=== PATIENT | male | born 1970 | race Caucasian/White ===

== ENCOUNTER 2024-12-25 15:51 | Inpatient (IN) | payer OTHER, SELFPAY ==
[2024-12-24] VITALS (12 sets, daily range): BP systolic 165–212; BP diastolic 95–132; BMI 32.5
--- NOTE | 2024-12-24 16:10 | EDRN ---
This RN spoke w/ crisis, informed crisis that pt. has requests for help w/ his depression, pt. denies SI, denies HI, but does request crisis help.
--- NOTE | 2024-12-24 16:28 | ED.GENMED ---
Addendum entered and electronically signed by Tano Quinonez MD 12/25/24 15:11:
Patient, while waiting for potential transfer to inpatient psychiatric facility, remains persistently hypotensive, despite multiple medications administered along with prolonged course of observation. As such, patient unsafe to be discharged or
transferred to inpatient psychiatric facility at this time. Patient will need better control of his blood pressure prior to initiating transfer. As such, patient will be admitted to hospitalist service for further evaluation and treatment.
Original Note:
History of Present Illness
General
Chief Complaint: Blood Pressure Problem
Time Seen by Provider: 12/24/24 16:23
History of Present Illness
History of Present Illness:
TIME OF INITIAL ENCOUNTER: 4:30 PM
HPI: As I walked in the room, the patient tells me that he cannot cope. He states he has severe anxiety and anger. He had been on BuSpar. He does not necessarily describe any suicidal ideation but also describes a sensation of feeling hopeless.
Of note he was found to be hypertensive upon arrival.
EXAM:
GENERAL: Well appearing in no distress
HEENT: Moist oral mucosa
CARDIOVASCULAR: No murmurs, normal heart rate, regular rhythm, No chest wall tenderness
PULMONARY: No respiratory distress, breath sounds are clear and equal
ABDOMEN: Soft with no peritoneal signs, no tenderness
NEUROLOGIC: Excellent strength all extremities, no coordination deficits
PSYCHIATRIC: Appears somewhat upset and anxious
EXTREMITIES: Nontender, no edema, moves all extremities equally
SKIN: No rash, no lesions
NUMBER AND COMPLEXITY OF PROBLEMS ADDRESSED AT THE ENCOUNTER
� Chronic conditions affecting care: Anxiety/depression, diabetes diet controlled, 'brain bleed', smoker
� Acute Exacerbation and/or Progression of Chronic Illness: This is an acute problem
� Differential Diagnosis includes: Suicidal ideation, depression, anxiety, hypertensive urgency,
AMOUNT AND/OR COMPLEXITY OF DATA TO BE REVIEWED AND ANALYZED
� I performed an independent evaluation of and my interpretation is:
EKG: Sinus 95, leftward axis deviation, ST abnormality may be related to LVH versus lateral ischemia
CT: CT shows old encephalomalacia left frontal, no acute abnormality
X-rays:
Laboratory Studies: White count 12.1, hemoglobin normal, troponin negative, chemistries relatively unremarkable, alcohol undetected
Other:
� Review of other/old records: No old records available for review in [facility]
� Clinical information was obtained by an independent historian: I spoke to father at bedside who feels that the patient must be transferred to a psychiatric facility for further psychiatric evaluation and management.
� Prescriptions/Medications Considered but not given:
� Further testing considered but not performed:
RISK OF COMPLICATIONS AND/OR MORBIDITY OR MORTALITY OF PATIENT MANAGEMENT
� Social determinants of health affecting care: Patient is currently homeless.
� Discussion with other providers: Discussed with crisis as consult was placed by triage as patient reported feeling depressed but he denies being suicidal.
� Escalation of care including admission/observation vs risk of discharge considered: Patient presents due to wanting help from a mental health standpoint.Patient was seen again by crisis at around 6:15 PM. Crisis recommending
CT imaging brain given the patient's history. Although patient's blood pressures have been elevated, he has no specific complaints related to high blood pressure. Suspect that some of the blood pressure is related to anxiety related issues and
just being upset. We did give antihypertensives here with some improvement of blood pressure. Was not very aggressive with lowering the blood pressure as patient is asymptomatic.
ANY OTHER UPDATES:
Crisis is bed searching for the patient. Unfortunately, given the patient's history of intracranial hemorrhage (of note which was traumatic), and persistently elevated high blood pressures despite oral and IV medications, it is currently difficult
to find a facility to willingly take him. Crisis states that they will bed search again tomorrow. I have ordered a morning dose of losartan 100 mg for him tomorrow. I have also placed him back on BuSpar.
Phy Exam
Physical Exam
Physical Exam:
See HPI
Course
Orders/Labs/Results
Orders:
Orders
12/24/24 15:45
EKG [Electrocardiogram (*1)] Urgent
Reason for Study: Hypertension, Benign
Crisis Consult Urgent
Reason for Consult: depression
EKG- Treatment ONCE
12/24/24 16:59
Lorazepam [Ativan] 1 mg IV NOW STA
12/24/24 17:47
Alcohol Urgent
Complete Blood Count/With Diff Urgent
Comprehensive Metabolic Panel Urgent
Magnesium Urgent
NT-proBNP Urgent
Troponin I Urgent
12/24/24 17:55
Losartan [Cozaar] 50 mg PO NOW STA
12/24/24 18:11
Add On- LAB Urgent
Tests Added?: alcohol
12/24/24 18:23
CT Head W/o Iv Contrast Urgent
Comment:
Reason For Exam: SANCHEZ high BP prior bleed
12/24/24 19:41
Labetalol HCl [Trandate] 10 mg IV NOW STA
12/24/24 20:54
Losartan [Cozaar] 50 mg PO NOW STA
12/24/24 21:25
Urine Drug Abuse Screen Urgent
Date Specimen was Collected: 12/24/24
Time Specimen was Collected: 18:22
12/24/24 22:01
Labetalol HCl [Trandate] 10 mg IV NOW STA
12/25/24 08:00
Losartan [Cozaar] 100 mg PO DAILY
Abnormal Lab Results
12/24/24
17:47
WBC 12.1 H 10^3/uL
(4.8-10.8)
Abs Immat Gran (auto) 0.1 H 10^3/uL
(0-0.05)
Absolute Neuts (auto) 7.7 H 10^3/uL
(1.4-6.5)
Absolute Monos (auto) 0.8 H 10^3/uL
(0.1-0.6)
Chloride 111 H mmol/L
(98-107)
BUN 21 H mg/dl
(9-20)
Glucose 113 H mg/dl
(70-99)
Calcium 10.4 H mg/dl
(8.4-10.2)
Magnesium 2.4 H mg/dl
(1.6-2.3)
ALT 74 H U/L
(0-50)
12/24/24 17:47
12/24/24 17:47
Vital Signs
Initial and Last Documented VS:
Initial Vital Signs
Temp Pulse Resp BP Pulse Ox
36.9 C 98 18 212/120 97
12/24/24 15:32 12/24/24 15:32 12/24/24 15:32 12/24/24 15:32 12/24/24 15:32
Last Documented Vital Signs
Temp Pulse Resp BP Pulse Ox
36.9 C 66 14 183/109 96
12/24/24 15:32 12/24/24 22:15 12/24/24 22:15 12/24/24 22:07 12/24/24 20:00
*Critical Care Note
Total Time (30-74mins, 75-104mins- exclusive of procedures): Not Applicable
ED Attending Note
-
Portions of this chart may have been created with voice recognition software.� Occasional wrong word or��sound alike� substitutions may have occurred due to the inherent limitations of voice recognition software.
Discharge Plan
Departure
Patient Disposition: Psych Facility
Date of Disposition: 12/24/24
Time of Disposition: 19:42
Patient with high blood pressure during this ER visit?: Yes
Discharge Problem:
Severe depression
Referrals:
NONE,* [Family Provider, Internal Medicine]
Interventions
Interventions:
*Risk Screen - Suicide Last Done: 12/24/24 15:32
*General Assessment Last Done: 12/24/24 15:32
*Neglect/Abuse Screening Last Done: 12/24/24 15:32
*ED COVID-19 Vaccine History Last Done: 12/24/24 15:32
ED- Cardiac Assessment Last Done: 12/24/24 18:08
ED- Neurological Assessment Last Done: 12/24/24 18:08
ED-Psychological Assessment Last Done: 12/24/24 18:08
ED- Pulmonary Assessment Last Done: 12/24/24 18:08
Discharge Date and Time
Print Language: AMHARIC
[2024-12-24] MEDS: ATIVAN 1 MG IV (17:48)
[2024-12-24 17:58] LABS: % Basophils 0.7 % (0-2); % Eosinophils 1.8 % (0-6); % Immature Granulocytes 0.4 % (0-0.5); % Lymphocytes 26.9 % (20.5-51.1); % Monocytes 6.4 % (1.7-9.3); % Neutrophils 63.8 % (42.2-75.2); Absolute Basophils 0.1 10^3/uL (0-0.2); Absolute Eosinophils 0.2 10^3/uL (0-0.7); Absolute Immature Granulocytes 0.1 10^3/uL (0-0.05); Absolute Lymphocytes 3.2 10^3/uL (1.2-3.4); Absolute Monocytes 0.8 10^3/uL (0.1-0.6); Absolute Neutrophils 7.7 10^3/uL (1.4-6.5); Hematocrit 47.3 % (39.0-52.0); Hemoglobin 16.6 g/dL (13.0-18.0); Mean Corp Hgb Conc. 35.1 g/dL (33.0-37.0); Mean Corpuscular Hgb 29.9 pg (27.0-31.0); Mean Corpuscular Volume 85.1 fL (80.0-94.0); Nucleated Red Blood Cells % 0 % (-); Platelet Count 219 10^3/uL (130-400); Red Blood Cell Count 5.56 10^6/uL (4.70-6.10); White Blood Cell Count 12.1 10^3/uL (4.8-10.8)
[2024-12-24] MEDS: COZAAR 50 MG PO ×2 (18:04→21:16)
[2024-12-24 18:30] LABS: NT-proBNP 146 pg/ml; Troponin I < 0.012 ng/ml
[2024-12-24 18:31] LABS: ALT (SGPT) 74 U/L (0-50); AST (SGOT) 39 U/L (17-59); Albumin 4.9 g/dl (3.5-5.0); Alkaline Phosphatase 76 U/L (38-126); Blood Urea Nitrogen 21 mg/dl (9-20); Calcium 10.4 mg/dl (8.4-10.2); Carbon Dioxide 24 mmol/L (22-30); Chloride 111 mmol/L (98-107); Estimated Creatinine Clearance 100 ml/min; Glucose 113 mg/dl (70-99); Magnesium 2.4 mg/dl (1.6-2.3); Potassium 4.1 mmol/L (3.5-5.1); Sodium 144 mmol/L (135-145); Total Bilirubin 0.5 mg/dl (0.2-1.3); Total Protein 7.6 g/dl (6.3-8.2); eGFR > 60.00
[2024-12-24 18:41] LABS: Alcohol None Detected
[2024-12-24] MEDS: TRANDATE 10 MG IV ×2 (20:06→22:07)
--- NOTE | 2024-12-24 20:14 | EDRN ---
Per ED attending, pt. does not require 1:1 sitter.
[2024-12-24] MEDS: BUSPAR 7.5 MG PO (23:50)
[2024-12-25] VITALS (16 sets, daily range): BP systolic 160–225; BP diastolic 81–138; BMI 31.4
[2024-12-25] MEDS: COZAAR 100 MG PO (09:23)
[2024-12-25] MEDS: BUSPAR 7.5 MG PO ×2 (09:23→20:02)
[2024-12-25 09:50] LABS: Marijuana Positive (Negative); Phencyclidine Positive (Negative)
[2024-12-25 09:51] LABS: Amphetamines Negative (Negative); Barbiturates Negative (Negative); Benzodiazepines Positive (Negative); Buprenorphine Negative (Negative); Cocaine Negative (Negative); Methadone Negative (Negative); Methamphetamines Negative (Negative); Opiates Negative (Negative); Tricyclic Antidepressants Negative (Negative)
[2024-12-25 10:15] LABS: Fentanyl, Urine Negative (Negative)
[2024-12-25] MEDS: NORVASC 10 MG PO ×2 (11:17→16:57)
[2024-12-25] MEDS: TRANDATE 10 MG IV (11:18)
--- NOTE | 2024-12-25 15:11 | HPS.HSE ---
Family Physician
-
Family Physician: * NONE
Chief Complaint
-
elevated HTN
History of Present Illness
54-year-old with past medical history of hypertension noncompliance on medications presented to ER yesterday due to anxiety and anger. His father brought him to the hospital. Patient remained hypertensive for which he received labetalol, losartan
and Norvasc with no relief in his blood pressure. Upon my assessment, patient seemed very angry at his family and food. Patient denied any suicidal ideation. Denied headache or dizziness. Denied fever, chills, chest pain, short of breath.
Patient denied abdominal pain, nausea, vomiting or diarrhea. Patient denies dysuria hematuria.
Admitting for further management
Medical History
Past Medical History
Past Medical History: Reports Other
Additional Past Medical History:
Hypertension
Past Surgical History: Reports Other
Additional Past Surgical History:
Hernia surgery
Social History
Tobacco: Smoker
Alcohol: Occasional
Drug: Marijuana
Living: With Family
Family History
Family History: Not pertinent
Allergies / Home Medications
Allergies reflects when Allergies were last updated in [employer].
Home Medications with original date entered in [employer]
Allergy/Medication List:
Allergies
Allergy/AdvReac Type Severity Reaction Status Date / Time
Penicillins Allergy Unknown Verified 12/24/24 23:01
Home Medications
No Meds [No Current Medications] 12/25/24
Review of Systems
-
Constitutional: Reports No Symptoms
EENT: Reports No Symptoms
Respiratory: Reports No Symptoms
Cardiac: Reports No Symptoms
Abdomen/GI: Reports No Symptoms
: Reports No Symptoms
Musculoskeletal: Reports No Symptoms
Skin: Reports No Symptoms
Neurological: Reports No Symptoms
Endocrine: Reports No Symptoms
Hematologic/Lymphatic: Reports No Symptoms
Psych: Reports No Symptoms
Physical Exam
Vital Signs
Vital Signs
Temp Pulse Resp BP Pulse Ox
97.6 F 74 15 178/104 98
12/25/24 09:21 12/25/24 14:45 12/25/24 14:45 12/25/24 14:44 12/25/24 01:10
Physical Exam
General: Well Developed, Well Nourished and No Apparent Distress
HEENT: NormoCephalic, Moist mucous membranes and Atraumatic
Respiratory: Clear
Cardiac: S1/S2 and Regular Rhythm; No Murmur or Rub
GI: Soft, Non Tender, Non Distended and Normal Bowel Sounds; No Organomegaly
Rectal: Deferred by Provider
Musculoskeletal: No Clubbing, No Cyanosis and No Edema
Skin: No Rash
Neuro: AO x 3 and Nonfocal/grossly intact
Psych: Calm
Laboratory Results
-
12/24/24 17:47
12/24/24 17:47
Laboratory Results
Total Bilirubin 0.5 mg/dl (0.2-1.3) 12/24/24 17:47
AST 39 U/L (17-59) 12/24/24 17:47
ALT 74 U/L (0-50) H 12/24/24 17:47
Alkaline Phosphatase 76 U/L (38-126) 12/24/24 17:47
Troponin I < 0.012 ng/ml 12/24/24 17:47
Data Reviewed
-
CT Scan: Report Reviewed by me
Lab Data: Labs Reviewed by me
Impression/Plan
-
# Uncontrolled hypertension
- Head CT with impression Moderate size area of encephalomalacia and/for old infarction in the left high frontal lobe.No acute intracranial abnormality.
- Norvasc and losartan continued
- Hydralazine as needed
# Depression/agitation
- Continue BuSpar
-lorazepam added
# Leukocytosis likely stress reaction
- WBCs 12.1
# Hyper mag/hypercalcemia
- Mag 2.4, calcium 10.4
-ctm
# nicotine dependence
- Patient smokes a pack a day
- Nicotine patch added
# DVT prophylaxis
-SCDs
# CODE STATUS
- Full code
--- NOTE | 2024-12-25 15:21 | W.PN.UPDATE ---
Update Note
Progress Note Update
This note serves as an addendum to the H&P by glass etcher helper ROJELIO Janeth OROZCO
HPI
54M HX HTN, non compliance with anti HTN seen at ER, evaluated by Crisis for depression, potential transfer to in-patient psychiatric facility for depression voluntarily seen at ER:
- Uncontrolled hypertension, despite prolonged observation and treatment with multiple medications
- denied SANCHEZ, palpitations , CP , SoB
- No Janet edema
ER TX:
Amlodipine 10 mg
IV Hydralazine 10mg
IV Labetalol 10 + 10 + 10 mg
Losartan 50 mg + 50mg + 100 mg
IV Ativan 1mg
Nicotine patch
Vital Signs
Temp Pulse Resp BP Pulse Ox
97.6 F 74 15 178/104 98
12/25/24 09:21 12/25/24 14:45 12/25/24 14:45 12/25/24 14:44 12/25/24 01:10
Selected Entries
12/25/24
10:01 12/25/24
10:15 12/25/24
11:17
Pulse 61
Blood pressure 193/116 193/116
12/25/24
12:00 12/25/24
14:44 12/25/24
14:44
Pulse 61 69
Blood pressure 178/104
PE
Gen: teary , sad and emotional
HEENT: Moist mucous membranes and Atraumatic
Neck: supple
Lungs: CTA
Cor: S1 S2 RRR
Abdomen: soft , benign
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
MS: no edema
Psych:denied suicidal ideation , denied homicidal ideation , cooperatives
Laboratory Tests
12/24/24
17:47
WBC 12.1 H
Hgb 16.6
Plt Count 219
Chloride 111 H
BUN 21 H
Creatinine 1.1
eGFR > 60.00
Glucose 113 H
Calcium 10.4 H
Magnesium 2.4 H
Troponin I < 0.012
Asg-A-Wogidyhklfk Pept 146
EKG:
NORMAL SINUS RHYTHM
RIGHT ATRIAL ENLARGEMENT
LEFT VENTRICULAR HYPERTROPHY WITH REPOLARIZATION ABNORMALITY ( [place] product )
ABNORMAL ECG
NO PREVIOUS ECGS AVAILABLE
CT Head W/o Iv Contrast
- Moderate size area of encephalomalacia and/for old infarction in the left high frontal lobe.
- No acute intracranial abnormality.
ASSESSMENT & PLAN
HTN urgency due to noncompliance with anti HTN meds and charged emotions
- NEG HCT
- s/p multiple anti HTN at ER and last BP 178/104
- c/w Norvasc and losartan
- add IV Hydralazine 10mg q6H PRN - pararmaters set for above !60 and DBP 110
- Fall precaution
Depression/agitation: teary , sad and emotional
Voluntary consent for IP Psych when medically clear
- denied suicidal ideation , denied homicidal ideation
- Continue BuSpar
- lorazepam added
- Crisis team to follow
Leukocytosis likely stress reaction
- WBCs 12.1
Hyper mag/hypercalcemia
- Mag 2.4, calcium 10.4
- f/u Labs in AM
Nicotine dependence
- Patient smokes a pack a day
- Nicotine patch added
DVT Px: SCD
Full code
IP TLM
[2024-12-25] MEDS: APRESOLINE 10 MG IV ×3 (15:27→23:09)
[2024-12-25] MEDS: NICODERM TRANSDERMAL 21 MG TRANSDERM (15:40)
--- NOTE | 2024-12-25 16:59 | PTCARENOTE ---
Received pt from ER around 1640. Pt AAOx3, pleasant, ambulated in room unassisted. BP elevated, medicated per MAR. Pt states he is 'not depressed, just angry', mainly in regard to personal life stressors. Denies suicidal ideation at this time.
[2024-12-26] VITALS (7 sets, daily range): BP systolic 128–162; BP diastolic 92–108
[2024-12-26 08:24] LABS: Hematocrit 50.8 % (39.0-52.0); Hemoglobin 17.9 g/dL (13.0-18.0); Mean Corp Hgb Conc. 35.2 g/dL (33.0-37.0); Mean Corpuscular Hgb 29.7 pg (27.0-31.0); Mean Corpuscular Volume 84.2 fL (80.0-94.0); Mean Platelet Volume 9.3 fL (7.4-10.4); Platelet Count 248 10^3/uL (130-400); Red Blood Cell Count 6.03 10^6/uL (4.70-6.10); Red Cell Dist. Width 14.1 % (11.5-14.5); White Blood Cell Count 9.9 10^3/uL (4.8-10.8)
[2024-12-26] MEDS: NORVASC 10 MG PO (08:33)
[2024-12-26] MEDS: BUSPAR 7.5 MG PO ×2 (08:33→19:51)
[2024-12-26] MEDS: COZAAR 100 MG PO (08:34)
[2024-12-26] MEDS: NICODERM TRANSDERMAL 21 MG TRANSDERM (08:34)
[2024-12-26] MEDS: TYLENOL 650 MG PO (08:37)
[2024-12-26 08:45] LABS: Blood Urea Nitrogen 11 mg/dl (9-20); Calcium 9.7 mg/dl (8.4-10.2); Carbon Dioxide 22 mmol/L (22-30); Chloride 110 mmol/L (98-107); Estimated Creatinine Clearance > 125 ml/min; Glucose 123 mg/dl (70-99); Magnesium 2.2 mg/dl (1.6-2.3); Sodium 141 mmol/L (135-145); eGFR > 60.00
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
[2024-12-26] MEDS: LOW STRENGTH ASPIRIN 81 MG PO (12:43)
[2024-12-26] MEDS: LAMICTAL 25 MG PO (14:36)
[2024-12-26] MEDS: ATIVAN 1 MG PO ×2 (15:38→22:41)
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
[2024-12-26] MEDS: APRESOLINE 10 MG IV (22:40)
[2024-12-27 03:17] VITALS: BP 114/77
[2024-12-27 07:00] VITALS: BP 146/98
[2024-12-27 07:07] LABS: Hematocrit 49.6 % (39.0-52.0); Mean Corp Hgb Conc. 34.3 g/dL (33.0-37.0); Mean Corpuscular Hgb 29.1 pg (27.0-31.0); Mean Corpuscular Volume 84.9 fL (80.0-94.0); Mean Platelet Volume 9.1 fL (7.4-10.4); Platelet Count 235 10^3/uL (130-400); Red Blood Cell Count 5.84 10^6/uL (4.70-6.10); Red Cell Dist. Width 14.4 % (11.5-14.5); White Blood Cell Count 8.9 10^3/uL (4.8-10.8)
[2024-12-27 07:22] LABS: ALT (SGPT) 57 U/L (0-50); AST (SGOT) 29 U/L (17-59); Albumin 4.7 g/dl (3.5-5.0); Alkaline Phosphatase 65 U/L (38-126); Blood Urea Nitrogen 13 mg/dl (9-20); Calcium 9.7 mg/dl (8.4-10.2); Carbon Dioxide 25 mmol/L (22-30); Chloride 110 mmol/L (98-107); Estimated Creatinine Clearance > 125 ml/min; Glucose 113 mg/dl (70-99); HDL Cholesterol 38 mg/dl; LDL Cholesterol, Calculated 159 mg/dl; Potassium 4.2 mmol/L (3.5-5.1); Sodium 144 mmol/L (135-145); Total Bilirubin 0.6 mg/dl (0.2-1.3); Total Cholesterol 225 mg/dl (50-199); Total Protein 7.3 g/dl (6.3-8.2); Triglyceride 144 mg/dl (10-149); Very Low Density Lipoprotein 28 mg/dl (0-30); eGFR > 60.00
[2024-12-27] MEDS: LAMICTAL 25 MG PO (07:24)
[2024-12-27] MEDS: ATIVAN 1 MG PO ×3 (07:25→21:01)
[2024-12-27] MEDS: COZAAR 100 MG PO (07:25)
[2024-12-27] MEDS: NORVASC 10 MG PO (07:25)
[2024-12-27] MEDS: BUSPAR 7.5 MG PO ×2 (07:25→21:00)
[2024-12-27] MEDS: LOW STRENGTH ASPIRIN 81 MG PO (07:26)
[2024-12-27] MEDS: NICODERM TRANSDERMAL 21 MG TRANSDERM (07:26)
--- NOTE | 2024-12-27 10:14 | W.PN.UPDATE ---
Update Note
Progress Note Update
Patient who came in voluntarily angry with homicidal thoughts seeking psychiatric hospitalization on 12/24/24 but found to have very high blood pressure is being stabilized. UDS showed PCP which he denies intentionally smokng, but may have been laced
in a cigarette he was given. VS much improved this morning. BP is 146/98 and P 79. On Losartan 100 mg. and Amodipine 10 mg. in addition to psychiatric medications of Ativan 1 mg. TID, buspirone 7.5 mg. BID (previously prescribed) and Lamictal
25 mg. daily (second dose today) for presumptive bipolar disorder.
Has not yet been seen by hospitalist, but I assume either ready or close to ready for medical clearance. Importance of compliance with all medications stressed. Aware of risk of serious rash from lamotrigine. Plan would be to taper down Ativan
(being used for contribution to his symptoms from PCP and general agitation), but I will not make that change today. Recommend standard lamotrigine titration of 25 mg. x 14, 50 mg. x 14, 100 mg. at least 7 days, 150 mg. at least 7 days and then 200
mg.
On exam he said he was just sleeping and slept well last night. Has appetite. Is much calmer and more appropriate today. Denies current homicidal thoughts. Angry that many of his possessions are still at the home of his ex-girlfriend (broke up a
year ago!) and her ex- and she has not been cooperative about returning them (including his grandfather's war medals).
I asked if he takes testosterone supplements. He has in the past, but not for many years.
He is still agreeable to voluntary hospitalization. I will notify CM and await medical clearance for discharge.
[2024-12-27 11:00] VITALS: BP 153/112
--- NOTE | 2024-12-27 11:04 | CM ---
Addendum entered by Mindy Taylor 12/27/24 12:10:
CM received voicemail from Ladan Goldman from [facility], denying admission due to instability due to blood pressure/recent stroke. CM will place calls to additional inpatient psych facilities.
Original Note:
CM reviewed chart, reviewed with Dr. Zavala. Call to [facility], spoke with Oneyda, will fax clinicals to [phone] for review. Patient remains agreeable to inpatient psych hospitalization. CM will continue to follow for all discharge planning
needs.
Plan; 201 inpatient psych, once accepting facility found, [place] to review
[2024-12-27] MEDS: APRESOLINE 10 MG IV ×2 (11:23→23:35)
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
[2024-12-27 15:00] VITALS: BP 156/103
[2024-12-27] MEDS: LIPITOR 40 MG PO (18:23)
[2024-12-27 23:36] VITALS: BP 149/105
[2024-12-28 07:42] VITALS: BP 148/85
[2024-12-28 08:44] LABS: Hematocrit 52.2 % (39.0-52.0); Hemoglobin 17.9 g/dL (13.0-18.0); Mean Corp Hgb Conc. 34.3 g/dL (33.0-37.0); Mean Corpuscular Hgb 29.8 pg (27.0-31.0); Mean Platelet Volume 9.6 fL (7.4-10.4); Platelet Count 246 10^3/uL (130-400); Red Cell Dist. Width 14.5 % (11.5-14.5); White Blood Cell Count 9.4 10^3/uL (4.8-10.8)
[2024-12-28] MEDS: NICODERM TRANSDERMAL 21 MG TRANSDERM (08:45)
[2024-12-28] MEDS: LOW STRENGTH ASPIRIN 81 MG PO (08:47)
[2024-12-28] MEDS: NORVASC 10 MG PO (08:47)
[2024-12-28] MEDS: COZAAR 100 MG PO (08:47)
[2024-12-28] MEDS: LAMICTAL 25 MG PO (08:47)
[2024-12-28] MEDS: ATIVAN 1 MG PO ×2 (08:48→19:47)
[2024-12-28] MEDS: BUSPAR 7.5 MG PO ×2 (08:48→19:47)
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
[2024-12-28 09:20] LABS: ALT (SGPT) 57 U/L (0-50); AST (SGOT) 31 U/L (17-59); Albumin 5.1 g/dl (3.5-5.0); Alkaline Phosphatase 66 U/L (38-126); Blood Urea Nitrogen 15 mg/dl (9-20); Calcium 10.1 mg/dl (8.4-10.2); Carbon Dioxide 21 mmol/L (22-30); Chloride 109 mmol/L (98-107); Estimated Creatinine Clearance > 125 ml/min; Glucose 146 mg/dl (70-99); Potassium 4.7 mmol/L (3.5-5.1); Sodium 141 mmol/L (135-145); Total Bilirubin 0.8 mg/dl (0.2-1.3); Total Protein 7.9 g/dl (6.3-8.2); eGFR > 60.00
--- NOTE | 2024-12-28 11:57 | PN.CDI ---
CDI
- -
CDI:
Physician Documentation Request
Admit Date: 12/25/24 15:51
Dear Doctor Sundeep,
Please review the following and provide your response in the progress notes.
Clinical Indicators:
- 12/24 ER Physician 'hypertensive upon arrival'
- 6/5 H&P 'Patient remained hypertensive for which he received labetalol, losartan and Norvasc with no relief in his blood pressure'
- 'Hydralazine as needed'
- 10mg IV Hydralazine given x 6
Selected Entries
12/24/24
15:32 12/24/24
18:30 12/24/24
21:00
Blood pressure 212/120 202/113 210/117
12/25/24
06:02 12/25/24
08:00 12/25/24
11:18
Blood pressure 189/102 225/126 193/116
Clarify which, if any of the following, is a more accurate diagnosis reflecting the type and acuity of the documented hypertension:
Essential primary hypertension
Hypertensive Urgency - B/P is severely elevated (systolic > or = to 180 or diastolic > or = to 110) but there is no associated organ damage. Symptoms may include: headache, shortness of breath, nosebleeds, severe anxiety. Treatment usually consists
of addition to or adjusting of oral medications and does not generally necessitate hospitalization.
Hypertensive Emergency - B/P is severely elevated (systolic > or = to 180 or diastolic > or = to 110) but can occur at lower levels especially in patients who did not previously have high B/P. There is usually associated organ damage. Symptoms may
include: memory loss, LOC, CVA, GA, angina, renal failure, pulmonary edema. Generally requires more aggressive treatment and a hospitalization.
Hypertensive Crisis - an acute elevation in B/P that can lead to organ damage. Broad term that is further differentiated to include urgency or emergency based on presence of organ damage.
Other (please specify)
Use of terms such as suspected, likely, concern for, or probable (associated with a specific diagnosis that is being evaluated, monitored, or treated as if it exists) are acceptable and can be coded in the inpatient setting, when documented at the
time of discharge.
Thank you,
Bernard Thomas RN
CDI Specialist
Please use your independent medical judgment in providing your response.
--- NOTE | 2024-12-28 14:06 | CM ---
CM reviewed chart, patient seen bedside, discussed [facility] unable to accept, awaiting to hear from Kim Black[facility].
Received call from Kim Blackmon, no appropriate bed for patient. Call to [facility] ([facility]) and [facility] faxed for review. Patient will require auth once accepting facility found for 201. CM will continue to follow for all discharge
planning needs.
Plan; voluntary inpatient psych placement once accepting facility found, will need auth, 201, patient has been denied at [facility] and [facility]. Patient would like to avoid going to [facility] or [facility].
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
[2024-12-28] MEDS: LIPITOR 40 MG PO (15:25)
[2024-12-28] MEDS: ATIVAN 0.5 MG PO (15:25)
[2024-12-28 15:59] VITALS: BP 141/85
--- NOTE | 2024-12-28 16:40 | PTCARENOTE ---
Patient pleasant today, cooperative. Ambulating with steady gait. Appropriate conversation. Denies any pain or discomfort . Behaviors appropriate.
[2024-12-28 23:20] VITALS: BP 136/93
[2024-12-29 07:40] LABS: Hematocrit 50.9 % (39.0-52.0); Hemoglobin 17.2 g/dL (13.0-18.0); Mean Corp Hgb Conc. 33.8 g/dL (33.0-37.0); Mean Corpuscular Volume 85.7 fL (80.0-94.0); Mean Platelet Volume 8.8 fL (7.4-10.4); Platelet Count 211 10^3/uL (130-400); Red Blood Cell Count 5.94 10^6/uL (4.70-6.10); Red Cell Dist. Width 14.2 % (11.5-14.5); White Blood Cell Count 8.4 10^3/uL (4.8-10.8)
[2024-12-29 07:58] VITALS: BP 157/117
[2024-12-29 08:19] LABS: ALT (SGPT) 57 U/L (0-50); AST (SGOT) 29 U/L (17-59); Albumin 5.2 g/dl (3.5-5.0); Alkaline Phosphatase 68 U/L (38-126); Blood Urea Nitrogen 13 mg/dl (9-20); Calcium 9.4 mg/dl (8.4-10.2); Carbon Dioxide 25 mmol/L (22-30); Chloride 108 mmol/L (98-107); Estimated Creatinine Clearance > 125 ml/min; Glucose 119 mg/dl (70-99); Potassium 4.4 mmol/L (3.5-5.1); Sodium 143 mmol/L (135-145); Total Bilirubin 0.7 mg/dl (0.2-1.3); Total Protein 7.8 g/dl (6.3-8.2); eGFR > 60.00
[2024-12-29] MEDS: LAMICTAL 25 MG PO (08:34)
[2024-12-29] MEDS: ATIVAN 1 MG PO ×2 (08:34→19:11)
[2024-12-29] MEDS: BUSPAR 7.5 MG PO ×2 (08:34→19:11)
[2024-12-29] MEDS: NORVASC 10 MG PO (08:34)
[2024-12-29] MEDS: LOW STRENGTH ASPIRIN 81 MG PO (08:35)
[2024-12-29] MEDS: NICODERM TRANSDERMAL 21 MG TRANSDERM (08:38)
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
[2024-12-29] MEDS: COREG 3.125 MG PO ×2 (09:25→19:11)
[2024-12-29] MEDS: COZAAR 100 MG PO (09:25)
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
[2024-12-29 11:33] VITALS: BP 145/102
--- NOTE | 2024-12-29 11:52 | CM ---
Addendum entered by Summer Foreman 12/29/24 16:23:
Patient accepted to [facility]. Auth approved by Jasbir Allen [phone];5 days on arrival at [facility]. Please call report to [phone]/fax [phone]. Ambulance requested and forms provided to community engagement specialist. await time from liaison.
Original Note:
CM spoke with [facility] and they indicated patient was still under review and requested updated clinicals including nursing notebe faxed to them. CM did so. CM also reached out to [facility] and await response. CM will continue to follow for
discharge planning needs.
Plan; 201 when accepted
[2024-12-29] MEDS: ATIVAN 0.5 MG PO (14:02)
[2024-12-29 15:35] VITALS: BP 161/97
[2024-12-29] MEDS: LIPITOR 40 MG PO (17:35)
--- NOTE | 2024-12-30 11:51 | W.DCSUMMARY ---
Discharge Summary
Discharge Data
Date of Admission: 12/25/24
Date of Discharge: 12/29/24
-
Pending Results: No
Hospital Course
Principal Diagnosis:
Polysubstance abuse
Uncontrolled hypertension
Hyperlipidemia
Chronic Diagnoses:�
Depression/agitation
Nicotine dependence
Incidental finding of an old infarction of the left high frontal lobe
Consultations:�
Psychiatry
Procedures:�
None
Clinical course:�
This is a 54-year-old male, with past medical history as stated above, who presented with labile mood.
Problem 1:
Polysubstance abuse.
His urine drug screen was positive for PCP, along with marijuana and benzo.
He has been educated on illicit drug cessation.
He was seen by psychiatrist while in the hospital, and was started with Ativan (discharged with 1 mg daily for 3 days, then stop), buspirone 7.5 mg BID (previously prescribed), and Lamictal 25 mg daily for presumptive bipolar disorder.
He was discharged to inpatient psych facility for continued management.
Problem 2:
Uncontrolled hypertension.
He was started with Norvasc 10 mg daily, losartan 100 mg daily, and Coreg 3.125 mg twice daily.
Problem 3:
Hyperlipidemia.
LDL was checked, noted to be high at 159, and the patient was started with Lipitor 40 mg.
Discharge Plan
-
Patient Disposition: Psych Facility
Discharge Diagnosis/Procedures: Polysubstance abuse.
Uncontrolled hypertension
Depression/agitation
Diet: As tolerated
Activity: As tolerated
Referrals:
NONE,* [Family Provider, Internal Medicine]
Prescriptions:
New
atorvastatin 40 mg Tablet
40 mg PO QPM 30 Days Qty: 30 0RF
buspirone 5 mg Tablet
7.5 mg PO BID 30 Days Qty: 90 0RF
lamotrigine 25 mg Tablet, Chewable Dispersible
25 mg PO DAILY Qty: 30 0RF
carvedilol 3.125 mg Tablet
3.125 mg PO BID 30 Days Qty: 60 0RF
amlodipine 10 mg Tablet
10 mg PO DAILY 30 Days Qty: 30 0RF
lorazepam 1 mg Tablet
1 mg PO BID 3 Days Qty: 6 0RF
losartan 100 mg Tablet
100 mg PO DAILY 30 Days Qty: 30 0RF
Continued
aspirin 81 mg Capsule
81 mg PO DAILY
Discharge Orders:
Discharge Patient (As Directed); Ordered 12/29/24
Ordered By: Cecily Christy
Discharge Date and Time
Discharge Date/Time: 12/29/24 19:28
Print Language: VIET[place]ESE
== END 2024-12-29 19:28 | DRG 897 ==
LOC: 4 WEST ACU 15:51
PROVIDERS: Internal Medicine; Registered Nurse; ADMITTING PHYSICIAN Internal Medicine; ATTENDING PHYSICIAN Internal Medicine; EMERGENCY PHYSICIAN Emergency Medicine; OTHER PHYSICIAN Psychiatry & Neurology Psychiatry
DX: F19.10 Other psychoactive substance abuse, uncomplicated (principal); Z59.00 Homelessness unspecified; F31.30 Bipolar disorder, current episode depressed, mild or moderate severity, unspecified; Y92.9 Unspecified place or not applicable; F41.9 Anxiety disorder, unspecified; I10 Essential (primary) hypertension; G93.89 Other specified disorders of brain; E11.9 Type 2 diabetes mellitus without complications; E83.52 Hypercalcemia; R45.850 Homicidal ideations; F16.180 Hallucinogen abuse with hallucinogen-induced anxiety disorder; R48.0 Dyslexia and alexia; F90.9 Attention-deficit hyperactivity disorder, unspecified type; E78.5 Hyperlipidemia, unspecified; F63.9 Impulse disorder, unspecified; D72.829 Elevated white blood cell count, unspecified; E83.41 Hypermagnesemia; F17.210 Nicotine dependence, cigarettes, uncomplicated; I16.0 Hypertensive urgency; Z75.1 Person awaiting admission to adequate facility elsewhere; Z88.0 Allergy status to penicillin; Z91.148 Patient's other noncompliance with medication regimen for other reason; Z86.73 Personal history of transient ischemic attack (TIA), and cerebral infarction without residual deficits
CPT/HCPCS: 99285; 96374; 96375; 96376; 70450; 80048; 80053; 80061; 80306; 80307; 82077; 83735; 83880; 84484; 85025; 85027; 93005